=== PATIENT | female | born 1980 | race Caucasian/White ===

== ENCOUNTER 2019-09-03 07:05 | Day surgery (SDC) | payer OTHER ==
[~2019-09-03 07:05] MED LIST: BENADRYL25 MG PO; CLARITIN10 M1 PO; FOLIC ACID20 MG PO; PRILOSEC OTC20 MG PO
== END 2019-09-03 14:57 | disposition home or self-care (01) ==
LOC: CIR.AMB 07:05
DX: N84.0 Polyp of corpus uteri (principal)

== ENCOUNTER → 2020-03-04 | Outpatient (CLI) | payer OTHER | END | disposition home or self-care (01) | LOC: NST 14:58 | PROVIDERS: ATTEND Obstetrics & Gynecology | DX: Z34.82 Encounter for supervision of other normal pregnancy, second trimester (principal) ==

== ENCOUNTER → 2020-03-25 | Outpatient (CLI) | payer OTHER | END | disposition home or self-care (01) | LOC: NST 16:46 | PROVIDERS: ATTEND Obstetrics & Gynecology | DX: Z34.82 Encounter for supervision of other normal pregnancy, second trimester (principal) ==

== ENCOUNTER 2020-04-09 08:55 | Outpatient (CLI) | payer OTHER | END 2020-04-09 09:24 | disposition home or self-care (01) | LOC: NST 08:55 | PROVIDERS: ATTEND Obstetrics & Gynecology Maternal & Fetal Medicine | DX: Z34.83 Encounter for supervision of other normal pregnancy, third trimester (principal) ==

== ENCOUNTER → 2020-04-13 | Outpatient (CLI) | payer OTHER | END | disposition home or self-care (01) | LOC: NST 16:42 | PROVIDERS: ATTEND Obstetrics & Gynecology Maternal & Fetal Medicine | DX: Z34.83 Encounter for supervision of other normal pregnancy, third trimester (principal) ==

== ENCOUNTER 2020-05-12 12:28 | Outpatient (CLI) | payer OTHER | END 2020-05-12 14:09 | disposition home or self-care (01) | LOC: NST 12:28 | PROVIDERS: ATTEND Obstetrics & Gynecology Maternal & Fetal Medicine | DX: Z34.83 Encounter for supervision of other normal pregnancy, third trimester (principal) ==

== ENCOUNTER 2020-05-27 12:22 | Outpatient (CLI) | payer OTHER | END 2020-05-27 13:49 | disposition home or self-care (01) | LOC: NST 12:22 | PROVIDERS: ATTEND Obstetrics & Gynecology Maternal & Fetal Medicine | DX: Z34.83 Encounter for supervision of other normal pregnancy, third trimester (principal) ==

== ENCOUNTER 2020-06-07 13:00 | Inpatient (IN) | payer OTHER ==
[~2020-06-07] VITALS: Ht 152.4 cm; Wt 72.6 kg
[2020-06-29] MEDS ORDERED: OBTREX DHA COM1 EACH (13:16)
== END 2020-06-30 15:53 | disposition home or self-care (01) | DRG 807 ==
LOC: LDR 06-28 06:17 → OB/GYN 06-28 12:15
PROVIDERS: ADMIT Obstetrics & Gynecology Maternal & Fetal Medicine; ATTEND Obstetrics & Gynecology Maternal & Fetal Medicine
PROC: 10E0XZZ Delivery of Products of Conception, External Approach (ICD-10-PCS; principal; 2020-06-28)
PROC: 0KQM0ZZ Repair Perineum Muscle, Open Approach (ICD-10-PCS; 2020-06-28)
PROC: 4A1HXFZ Monitoring of Products of Conception, Cardiac Rhythm, External Approach (ICD-10-PCS; 2020-06-28)
DX: O70.1 Second degree perineal laceration during delivery (principal); Z37.0 Single live birth; Z3A.39 39 weeks gestation of pregnancy; Z20.828 Contact with and (suspected) exposure to other viral communicable diseases

== ENCOUNTER 2020-06-21 14:55 | Outpatient (CLI) | payer OTHER | END 2020-06-21 17:16 | disposition home or self-care (01) | LOC: NST 14:55 | PROVIDERS: ATTEND Obstetrics & Gynecology Maternal & Fetal Medicine | DX: Z34.83 Encounter for supervision of other normal pregnancy, third trimester (principal) ==